=== PATIENT | female | born 1990 | race African-American/Black ===

== ENCOUNTER 2018-06-02 13:38 | Emergency (ER) | payer SELFPAY ==
[2018-06-02 14:01] VITALS: BP 122/65; PULSE 79; TEMP 98.5; BMI 24.2
--- NOTE | 2018-06-02 15:33 | PDOC ---
History of Present Illness - General Chief Complaint: Pain Stated Complaint: Weakness Time Seen by Provider: 06/02/18 15:25 - History of Present Illness Initial Comments: 06/02/18 15:29 28 yo , aborta 1, LMP 02/2018, at 14 wga, confirmed on U/S who p/w lower back, and pelvic pain. Patient endorses one day of sharp, shooting, severe lower back pain with radiation into pelvis. No identifiable alleviators or triggers resolving spontaneously after minutes. Tylenol 4-6 hours with absent relief. Endorses 4-5 episodes of non bilious, non bloody emesis yesterday evening. + 4-6 episodes of loose watery stools x 24 hours. Decreased PO intake, and appetite. Denies abdominal trauma. Patient denies VENTURA,vision change, palpitations, orthopnea, PND, leg pain/swelling , N/V, F,C, CP, SOB, urinary complaints, hematuria, BPR, vaginal bleeding/ discharge, constipation, lightheadedness, weakness, sensory changes. PMHx: as noted above. H/o . ROS: as noted SHx: Denies Etoh, IVDA, tobacco use Allergies: NKDA Past History - Past Medical History Allergies/Adverse Reactions: Allergies Allergy/AdvReac Type Severity Reaction Status Date / Time No Known Allergies Allergy Verified 06/02/18 14:01 Home Medications: Ambulatory Orders No Home Medications 0 dose .ROUTE UTDICT 04/07/12 COPD: No - Reproductive History (#): 3 Para: 1 Cervical CA: No Dysfunctional Uterine Bleeding: No Ectopic : No Endometrial CA: No Polycystic Ovaries: No Therapeutic (s) & number: No Tubal Ligation: No Spontaneous : 1 - Suicide/Smoking/Psychosocial Hx Smoking Status: No Smoking History: Never smoked Have you smoked in the past 12 months: No Number of Cigarettes Smoked Daily: 6 Information on smoking cessation initiated: No 'Breaking Loose' booklet given: 07/14/17 Hx Alcohol Use: No Drug/Substance Use Hx: No Substance Use Type: None Hx Substance Use Treatment: No Review of Systems - Review of Systems Comments:: 06/02/18 15:29 GENERAL/CONSTITUTIONAL: No fever or chills. No weakness. HEAD, EYES, EARS, NOSE AND THROAT: No change in vision. No ear pain or discharge. No sore throat. CARDIOVASCULAR: No chest pain or shortness of breath RESPIRATORY: No cough, wheezing, or hemoptysis. GASTROINTESTINAL:+ Abdominal pain, nausea, vomiting. No diarrhea or constipation. GENITOURINARY: No dysuria, frequency, or change in urination. MUSCULOSKELETAL: + Lower back pain. No joint or muscle swelling or pain. No neck pain. SKIN: No rash NEUROLOGIC: No headache, vertigo, loss of consciousness, or change in strength/ sensation. ENDOCRINE: No increased thirst. No abnormal weight change HEMATOLOGIC/LYMPHATIC: No anemia, easy bleeding, or history of blood clots. ALLERGIC/IMMUNOLOGIC: No hives or skin allergy. *Physical Exam - Vital Signs Last Vital Signs Temp Pulse Resp BP Pulse Ox 98.5 F 79 16 122/65 100 06/02/18 13:57 06/02/18 13:57 06/02/18 13:57 06/02/18 13:57 06/02/18 13:57 - Physical Exam Comments: 06/02/18 15:30 GENERAL: Awake, alert, and fully oriented, in no acute distress HEAD: No signs of trauma, normocephalic, atraumatic EYES: PERRLA, EOMI, sclera anicteric, conjunctiva clear ENT: Hearing grossly normal, nares patent, oropharynx clear without exudates. Moist mucosa NECK: Normal ROM, supple, no lymphadenopathy, JVD, or masses LUNGS: No distress, speaks full sentences, clear to auscultation bilaterally HEART: Regular rate and rhythm, normal S1 and S2, no murmurs, rubs or gallops, peripheral pulses normal and equal bilaterally. ABDOMEN: Soft, nontender, normoactive bowel sounds. No guarding, no rebound. No masses. Neg CVA ttp. GENITOURINARY: Nml appearing external genitalia, absent blood in vaginal vault. Absent lesions or discharge. Neg adenexal ttp. Neg CMT on BM. Cervical os closed. EXTREMITIES : Normal inspection, Normal range of motion, no edema. No clubbing or cyanosis. BACK: Neg midline or paraspinal ttp, neg bony deformity, or stepoff. Neg skin change, or fluctuance. NEUROLOGICAL: Cranial nerves II through XII grossly intact. Normal speech, normal gait, no focal sensorimotor deficits SKIN: Warm, Dry, normal turgor, no rashes or lesions noted Moderate Sedation - Procedure Monitoring Vital Signs: Procedure Monitoring Vital Signs Temperature 98.5 F 06/02/18 13:57 Pulse Rate 79 06/02/18 13:57 Respiratory Rate 16 06/02/18 13:57 Blood Pressure 122/65 06/02/18 13:57 O2 Sat by Pulse Oximetry (%) 100 06/02/18 13:57 ED Treatment Course - LABORATORY CBC & Chemistry Diagram: 06/02/18 16:02 06/02/18 16:02 Medical Decision Making - Medical Decision Making 06/02/18 16:31 28 yo , aborta 1, LMP 02/2018, at 14 wga, confirmed on U/S who p/w lower back, and pelvic pain. VSS, AF, A&Ox3. Physical exam unremarkable. Will assess for viable intrauterine . Will assess for threatened , PID, placenta previa, JENNY, cystitis, nephrolithiasis. Abdomen non tender. Low suspicion colitis, diverticutlitis, appendicitis, pyelonephritis. Will provide antiemeitic control, analgesia, IVF and reassess. . ED Course CAMILLE Villanueva 06/02/18 17:18 CBC,CMP: Unremarkable UA: Neg 06/02/18 18:13 Transabdominal U/S: IUP 16w6d, with FHR 153. Difficult to visualize ovaries d/t obscuring bowel gas. Obtain TVUS. Patient pending TVUS. 06/02/18 19:19 TVUS: 1.2 cm on right ovary. Otherwise unremarkable Stable for d/c with return precautions. Advised to f/u with [employer]. *DC/Admit/Observation/Transfer Diagnosis at time of Disposition: Pelvic pain - Discharge Dispostion Condition at time of disposition: Stable - Referrals Referrals: Dimas Bañuelos MD [Primary Care Provider] - - Patient Instructions Printed Discharge Instructions: DI for Abdominal Pain -- Early Additional Instructions: Please return to the emergency department with any new or worsening symptoms or concerns. Please follow up with your primary care physician within 72 hours. - Post Discharge Activity - Attestations Physician Attestion: 06/02/18 15:30 I attest to the information provided in this note.
[2018-06-02] MEDS ORDERED: SODIUM CHLORIDE 1,000 ML IV STA (16:00)
[2018-06-02] MEDS ORDERED: ONDANSETRON 4 MG/2 ML VIAL IVPUSH ONE (16:31)
--- NOTE | 2018-06-02 16:41 | PDOC ---
Attending Attestation - Resident Resident Name: Chang Carlinson - ED Attending Attestation I have performed the following: I have examined & evaluated the patient, The case was reviewed & discussed with the resident, I agree w/resident's findings & plan - HPI HPI: 06/02/18 18:26 28 YOF 16 weeks A1 presenting with 1 day of lower back pain radiating to her pelvis. She describes her pain as sharp resolving spontaneously without any endorsing or exacerbating factors. Patient endorses an associated 5 episodes of NBNB emesis last night with 5 episodes of loose NB stools. She denies any abnormal vaginal discharge or bleeding. She denies recent dysuria, frequency, urgency or hematuria. She denies recent chest pain or shortness of breath. No sick contacts or travel. No new changes in medications. ate grilled chicken and salad last night. Allergies: None Past Medical History: None. Social history: Lives with family. No tobacco, ETOH or drug use. Surgical history: None LMP: 02/2018 - Physicial Exam PE: 06/02/18 18:27 NAD, well appearing, PERRL, EOMI, MMM, nl conjunctiva, anicteric; neck supple. lungs clear, RRR, abdomen soft, gravid. mild Right lower pelvis tenderness; no rebound or guarding. no CVAT. KELLER x4, no focal neuro deficits. No peripheral edema. normal color for ethnicity, WWP. pelvic exam by resident. 06/02/18 18:33 - Medical Decision Making 06/02/18 18:29 hpi as documented vitals wnl DDx. gastroenteritis, electrolyte/metabolic derangements. ovarian torsion, ovarian cyst. back strain. labs and lytes wnl, UA neg for infection. given analgesia and topical lidocaine. likely back pain 2/2 progressing and uterus. TAB US with IUP visualized, unable to visualize the ovaries due to bowel gas TVUS to check for pelvic pathology/ovarian cyst, as she has h/o ovarian cyst TVUS with right ovarian cyst, internal debris. no torsion, likely related to . supportive care, analgesia, and OB followup return precautions given. rest and phys activity as tolerated. 06/02/18 18:33 06/02/18 19:19
[2018-06-02 16:46] LABS: BASO % 0.2 % (0-2.0); EOS % 0.3 % (0-4.5); HEMATOCRIT 37.2 % (32.4-45.2); HEMOGLOBIN 13.4 GM/dL (10.7-15.3); LYMPH % 7.7 % (8-40); MCH 32.7 pg (25.7-33.7); MCHC 36.1 g/dl (32.0-36.0); MEAN CELL VOLUME 90.6 fl (80-96); MEAN PLT VOLUME 7.9 fl (7.5-11.1); MONO % 8.2 % (3.8-10.2); NEUT % 83.6 % (42.8-82.8); PLATELET COUNT 197 K/MM3 (134-434); RBC 4.11 M/mm3 (3.60-5.2); RDW 12.8 % (11.6-15.6); WHITE BLOOD COUNT 6.5 K/mm3 (4.0-10.0)
[2018-06-02] MEDS ORDERED: ONDANSETRON 4 MG/2 ML VIAL ONE (16:49)
[2018-06-02 17:01] LABS: URINE APPEARANCE SLCLOUDY; URINE BILIRUBIN NEGATIVE (<2.0 mg/dL); URINE COLOR YELLOW; URINE GLUCOSE (UA) NEGATIVE (NEGATIVE); URINE KETONE 2+ (NEGATIVE); URINE LEUK ESTERASE NEGATIVE (NEGATIVE); URINE NITRITE NEGATIVE (NEGATIVE); URINE PROTEIN NEGATIVE (NEGATIVE); URINE UROBILINOGEN NEGATIVE mg/dL (0.2-1.0)
[2018-06-02 17:13] LABS: ALBUMIN 3.5 g/dl (3.4-5.0); ALK PHOS 42 U/L (45-117); ANION GAP 9 MMOL/L (8-16); BILIRUBIN,TOTAL 0.4 mg/dL (0.2-1); BLOOD UREA NITROGEN 10 mg/dL (7-18); CALCIUM 8.8 mg/dL (8.5-10.1); CHLORIDE 104 mmol/L (98-107); CO2 22 mmol/L (21-32); CREATININE 0.5 mg/dL (0.55-1.3); GLUCOSE,RANDOM 70 mg/dL (74-106); LIPASE 135 U/L (73-393); POTASSIUM 3.8 mmol/L (3.5-5.1); SGOT/AST 61 U/L (15-37); SGPT/ALT 79 U/L (13-61); SODIUM 134 mmol/L (136-145); TOT PROT 6.8 g/dl (6.4-8.2)
[2018-06-02] MEDS ORDERED: LIDOCAINE 5% TOPICAL PATCH TP ONE (19:31)
[2018-06-02] MEDS ORDERED: LIDOCAINE 5% TOPICAL PATCH ONE (19:31)
[2018-06-02] MEDS ORDERED: LIDOCAINE PATCH REMOVAL MC SCH (22:00)
== END 2018-06-02 19:36 | disposition home or self-care (01) ==
LOC: JER 13:38
PROC: 3E0337Z Introduction of Electrolytic and Water Balance Substance into Peripheral Vein, Percutaneous Approach (ICD-10-PCS; principal; 2018-06-02)
PROC: 3E033GC Introduction of Other Therapeutic Substance into Peripheral Vein, Percutaneous Approach (ICD-10-PCS; 2018-06-02)
DX: O26.892 Other specified pregnancy related conditions, second trimester (principal); R10.2 Pelvic and perineal pain; O34.82 Maternal care for other abnormalities of pelvic organs, second trimester; N83.291 Other ovarian cyst, right side; Z3A.16 16 weeks gestation of pregnancy
CPT/HCPCS: 36415; 76801-TC; 76817-TC; 80053; 81003; 83690; 85025; 87086; 99282-25; J7030

== ENCOUNTER 2020-02-12 04:33 | Emergency (ER) | payer OTHER ==
[2020-02-12 04:51] VITALS: BMI 20.5
--- NOTE | 2020-02-12 05:04 | PDOC ---
History of Present Illness - General Chief Complaint: Psychiatric Stated Complaint: ANXIETY - History of Present Illness Initial Comments: 02/12/20 05:00 29 F with hx of anxiety and panic attack (not on any psy meds) presented to the ED for anxiety issue. Patient currently had no suicidal ideation/harming self or other. Patient was hanging with friends, and had a sudden panic attack. She had fast heart rate, and generalized shaking on the extremities. Patient saw a therapist, but not a psychiatrist. Last time, she had a panic attack, she came here and got a valium. Denies chest pain, nausea/vomiting, fever, chill, abdominal pain. PMHX: as in HPI PSHX: none Meds:none Allergies: none Tob:none Etoh: none Rec drugs: none PCP: Sarmad BUSTAMANTE GENERAL/CONSTITUTIONAL: No fever or chills. No weakness. HEAD, EYES, EARS, NOSE AND THROAT: No change in vision. No ear pain or discharge. No sore throat. CARDIOVASCULAR: No chest pain or shortness of breath RESPIRATORY: No cough, wheezing, or hemoptysis. GASTROINTESTINAL: No nausea, vomiting, diarrhea or constipation. GENITOURINARY: No dysuria, frequency, or change in urination. MUSCULOSKELETAL: No joint or muscle swelling or pain. No neck or back pain. SKIN: No rash NEUROLOGIC: No headache, vertigo, loss of consciousness, or change in strength/sensation. ENDOCRINE: No increased thirst. No abnormal weight change HEMATOLOGIC/LYMPHATIC: No anemia, easy bleeding, or history of blood clots. ALLERGIC/IMMUNOLOGIC: No hives or skin allergy. PE GENERAL: Awake, alert, and fully oriented, in no acute distress HEAD: No signs of trauma, normocephalic, atraumatic EYES: PERRLA, EOMI, sclera anicteric, conjunctiva clear ENT: Auricles normal inspection, hearing grossly normal, nares patent, oropharynx clear without exudates. Moist mucosa NECK: Normal ROM, supple, no lymphadenopathy, JVD, or masses LUNGS: No distress, speaks full sentences, clear to auscultation bilaterally HEART: Regular rate and rhythm, normal S1 and S2, no murmurs, rubs or gallops, peripheral pulses normal and equal bilaterally. ABDOMEN: Soft, nontender, normoactive bowel sounds. No guarding, no rebound. No masses EXTREMITIES : Normal inspection, Normal range of motion, no edema. No clubbing or cyanosis. NEUROLOGICAL: Cranial nerves II through XII grossly intact. Normal speech, normal gait, no focal sensorimotor deficits SKIN: Warm, Dry, normal turgor, no rashes or lesions noted Past History - Medical History Allergies/Adverse Reactions: Allergies Allergy/AdvReac Type Severity Reaction Status Date / Time No Known Allergies Allergy Verified 02/12/20 04:43 Home Medications: Ambulatory Orders NK [No Known Home Medication] 02/12/20 COPD: No Psychiatric Problems: Yes (ANXIETY) - Reproductive History Is Patient Now?: No (#): 3 Para: 1 Cervical CA: No Dysfunctional Uterine Bleeding: No Ectopic : No Endometrial CA: No Polycystic Ovaries: No Therapeutic (s) & number: No Tubal Ligation: No Spontaneous : 1 - Immunization History Immunization Up to Date: Yes - Psycho-Social/Smoking History Smoking Status: No Smoking History: Never smoked Have you smoked in the past 12 months: No Number of Cigarettes Smoked Daily: 6 If you are a former smoker, when did you quit?: 2 months Information on smoking cessation initiated: No 'Breaking Loose' booklet given: 07/14/17 - Substance Abuse Hx (Audit-C & DAST Scrn) How often the patient has a drink containing alcohol: Never Score: In Men: 4 or > Positive; In Women: 3 or > Positive: 0 Screen Result (Pos requires Nsg. Audit-10AR): Negative In the last yr the pt used illegal drug/Rx for NonMed reason: No Score: Yes response is considered Positive: 0 Screen Result (Positive result requires Nsg. DAST-10): Negative *Physical Exam - Vital Signs Last Vital Signs Temp Pulse Resp BP Pulse Ox 98.5 F 85 20 118/81 100 02/12/20 04:43 02/12/20 04:43 02/12/20 04:43 02/12/20 04:43 02/12/20 04:43 Medical Decision Making - Medical Decision Making 02/12/20 05:15 Plan to give patient half a dose of valium. Give referral for psychiatrist. Continue to see therapist tomorrow. Patient will take a taxi home. Discharge - Discharge Information Problems reviewed: Yes Clinical Impression/Diagnosis: Anxiety and depression Condition: Good Disposition: HOME - Follow up/Referral Referrals: Josemanuel Bañuelos MD [Primary Care Provider] - Deepak Villasenor NP [Nurse Practitioner] - - Patient Discharge Instructions Patient Printed Discharge Instructions: DI for Panic Disorder Additional Instructions: You were seen in the ED for complaints of anxiety/panic attack In the ED you were evaluated with physical exam. Your results were negative There does not appear to be an acute need for immediate hospitalization. You are advised to follow up with your Primary Care Physician and psychiatrist within 1 week. You were given a referral to see a psychiatrist for psy medication. Return to the ED immediately if you experience worsening panic attack, difficulty breathing. - Post Discharge Activity Work/Back to School Note: My Personal Safety Plan
[2020-02-12] MEDS ORDERED: diazePAM 2 MG TABLET PO ONE (05:11)
--- OUTSIDE RECORDS SUMMARY | 2020-02-12 05:11 | XMS ---
:1990 [facility] Providers Name Role Phone ED STAFF PHYSICIAN, CORY Unavailable Unavailable ED STAFF PHYSICIAN, STAFF Unavailable Unavailable INDIA GRAVES Unavailable Unavailable TrevViri Bety Unavailable Unavailable Trev, Bety Unavailable Unavailable Trev, Bety Unavailable Unavailable Trev, Bety Unavailable Unavailable Trev, Bety Unavailable Unavailable Trev, Bety Unavailable Unavailable Re-disclosure Warning The records that you are about to access may contain information from federally- assisted alcohol or drug abuse programs. If such information is present, then the following federally mandated warning applies: This information has been disclosed to you from records protected by federal confidentiality rules (42 CFR part 2). The federal rules prohibit you from making any further disclosure of this information unless further disclosure is expressly permitted by the written consent of the person to whom it pertains or as otherwise permitted by 42 CFR part 2. A general authorization for the release of medical or other information is NOT sufficient for this purpose. The Federal rules restrict any use of the information to criminally investigate or prosecute any alcohol or drug abuse patient.The records that you are about to access may contain highly sensitive health information, the redisclosure of which is protected by Article 27-F of the [facility] Public Health law. If you continue you may haveaccess to information: Regarding HIV / AIDS; Provided by facilities licensed or operated by the [facility] Office of Mental Health; or Provided by the [facility] Office for People With Developmental Disabilities. If such information is present, then the following [facility] mandated warning applies: This information has been disclosed to you from confidential records which are protected by state law. State law prohibits you from making any further disclosure of this information without the specific written consent of the person to whom it pertains, or as otherwise permitted by law. Any unauthorized further disclosure in violation of state law may result in a fine or long term sentence or both. A general authorization for the release of medical or other information is NOT sufficient authorization for further disclosure. Encounters Encounter Providers Location Date Indications Data Source(s ) Emergency Attender: CORY ED H 05/25/2019 Vivi Pena STAFF 06:49:00 AM EST Medical C enter PHYSICIANAttender: - 05/26/2019 STAFF ED STAFF 12:22:00 AM EST PHYSICIANAdmitter: CORY ED STAFF PHYSICIAN Patient discharged. Inpatient Attender: [facility]2018 [facility]i 11[facility]19[facility]00 AM EDT - ECLAMP [facility] 11/24/2018 [facility] 02:35:00 PM EDT R-O PRE ECLAMPSIA Outpatient Attender: [facility] 11/21/2018 [facility]: [facility] AM EDT [facility] R-O PRE ECLAMPSIA Outpatient Attender: 11/19/2018 R-O LABOR [place] [facility], 01:57:00 PM EDT He alth Care JOSEAdmitter: INDIA Swann R-O LABOR Medications Medication Brand Start Product Dose Route Administrative Pharmacy [facility] Indications Reaction Description Data Name Date Form Instructions Instructions Source(s) Docusate DOK complet [facility] Sodium 100 (Docus ed r Count y MG Oral ate Health Capsule DOK Sodium Care (Docusate ) [100 Corporat io Sodium) mg n [100 mg Capsul Capsule]: 1 e]: 1 Tablet Oral Tablet 10A-6P Oral 10A-6P Discharge complet [facility] Rec. has ed r [facility] not been Health completed. Care Corporatio n Ibuprofen Ibupro complet [facility] heste 600 MG Oral fen ed [facility] Tablet [600 Health Ibuprofen mg Care [600 mg Tablet Corporatio Tablet]: 1 ]: 1 n Tablet Oral Tablet Q6HPRN PRN Oral Pain Q6HPRN PRN Pain Cephalexin cephal 1 complet Vivi t 500 MG Oral exin ed Becky Capsule 500 mg Medical cephalexin Capsul Center 500 mg e, Capsule, Ordere Ordered By: d By: Cory Byrnes, y MDDirection Fitz, s: 1 MDDire capsule ctions oral every : 1 eight hours capsul e oral every eight hours [id number] complet [facility] luis a Plus [29 mg 335 ed [facility] iron-1 mg Health Tablet]: 1 Care Tablet Oral Corporat io DAILY n Insurance Providers Payer name Policy type Policy ID Covered Covered alliance party's Policy P carlos / Coverage alliance party ID relationship to [facility] type step[place] [id number] [place] [id number] HMO O MVP/HHP O [id number] 01 [id number] MVP MEDICAID [id number] SP [id number] B O MVP Medicaid [id number] S [id number] Managed Care Medicaid [id number] S [id number] Regular Clinic Visit [facility] [id number] S [id number] Options MKD Superior [id number] S [id number] 500 Vision MKD Dental [id number] S [id number] [employer]plex MKD Problems, Conditions, and Diagnoses Code Display Name Description Problem Type Effective Data Sour ce(s) Dates K61.1 Rectal abscess RECTAL ABSCESS Diagnosis 05/25/2019 [facility] 06:49:00 AM Medical Cente r EST L02.91 Cutaneous abscess, CUTANEOUS Diagnosis 05/25/2019 [facility] unspecified ABSCESS, 06:49:00 AM Medical Cent er UNSPECIFIED EST O71.82 Other specified OTHER SPECIFIED Diagnosis 11/24/2018 Ihsan carrillo trauma to perineum TRAUMA TO 02:35:00 PM Count y Health and vulva PERINEUM AND EDT Care Corpora tion VULVA Z30.430 Encounter for ENCOUNTER FOR Diagnosis 11/24/2018 Juliane baig insertion of INSERTION OF 02:35:00 PM [facility] He alth intrauterine INTRAUTERINE EDT Care Corpo ration contraceptive CONTRACEPTIVE device DEVICE Z3A.41 41 weeks gestation 41 WEEKS Diagnosis 11/24/2018 Kristen bryan of GESTATION OF 02:35:00 PM [facility] He alth EDT Care Corporati on Z37.0 Single live SINGLE LIVE Diagnosis 11/24/2018 [place] 02:35:00 PM [facility] EDT Care Corporati on O71.4 Obstetric high OBSTETRIC HIGH Diagnosis 11/24/2018 Kristen bryan vaginal laceration VAGINAL 02:35:00 PM Count y Health alone LACERATION ALONE EDT Care Cor poration O34.219 Maternal care for MATERNAL CARE FOR Diagnosis 11/24/2018 [place] unspecified type UNSP TYPE SCAR 02:35:00 PM [facility] scar from previous FROM PREVIOUS EDT [employer] delivery DEL O48.0 Post-term POST-TERM Diagnosis 11/21/2018 [place] 11:19:00 AM [facility] EDT Care Corporati on Z3A.40 40 weeks gestation 40 WEEKS Diagnosis 11/19/2018 Kristen bryan of GESTATION OF 01:57:00 PM [facility] alth EDT Care Corporati on O26.893 Other specified OTH Diagnosis 11/19/2018 [place] bryan related RELATED 01:57:00 PM [facility] conditions, third CONDITIONS, THIRD EDT Care Corporation trimester TRIMESTER Z00.00 Encounter for Encntr for Diagnosis 07/18/2018 MARILYN (M rigo general adult general adult 03:56:39 PM [facility] medical medical exam w/o [facility] examination abnormal findings [facility]) without abnormal findings Results ID Date Data Source HematologyRou.[id number] 05/25/2019 08:27:00 AM MERVIN Ortiz [facility] 0500 Name Value Range Interpretation Description Data Sup porting Code Source(s) Document(s ) Erythrocytes 4.0-5.1 <content Saint [#/volume] in styleCode="Bold Becky Blood by ">Red Blood Medical Automated count Cell Count Center </content>4.86 MCUMM<content styleCode="Ital ics"> (4.0-5.1 MCUMM)</content > Leukocytes 4.4-11.0 Above high <content Saint [#/volume] in normal styleCode="Bold Becky Blood by ">White Blood Medical Automated count Cell Count Center </content>12.32 KCUMM H<content styleCode="Ital ics"> (4.4-11.0 KCUMM)</content > Hematocrit 36.0-46. <content Saint [Volume 0 styleCode="Bold Becky Fraction] of ">Hematocrit Medical Blood by </content>42.3 Center Automated count %<content styleCode="Ital ics"> (36.0-46.0 %)</content> Hemoglobin 12.3-16. <content Saint [Mass/volume] in 0 styleCode="Bold Becky Blood ">Hemoglobin Medical </content>14.6 Center G/DL<content styleCode="Ital ics"> (12.3-16.0 G/DL)</content> Erythrocyte mean 26.0-34. <content Saint corpuscular 0 styleCode="Bold Becky hemoglobin ">Mean Medical [Entitic mass] Corposcular Center by Automated Hemoglobin count </content>30.0 PG<content styleCode="Ital ics"> (26.0-34.0 PG)</content> Erythrocyte mean 80.0-100 <content Saint corpuscular .0 styleCode="Bold Becky volume [Entitic ">Mean Medical volume] by Corpuscular Center Automated count Volume </content>87.0 FL<content styleCode="Ital ics"> (80.0-100.0 FL)</content> Erythrocyte mean 32.0-37. <content Saint corpuscular 0 styleCode="Bold Becky hemoglobin ">Mean Corpus. Medical concentration Hgb Center [Mass/volume] by Concentration Automated count (MCHC) </content>34.5 G/DL<content styleCode="Ital ics"> (32.0-37.0 G/DL)</content> Platelets 130-400 <content Saint [#/volume] in styleCode="Bold Becky Blood by ">Platelet Medical Automated count Count Center </content>206 KCUMM<content styleCode="Ital ics"> (130-400 KCUMM)</content > Erythrocyte 11.5-14. <content Saint distribution 5 styleCode="Bold Becky width [Ratio] by ">Red Cell Medical Automated count Distribution Center Width </content>12.5 %<content styleCode="Ital ics"> (11.5-14.5 %)</content> UNK 1.6-7.3 Above high <content Saint normal styleCode="Bold Becky ">Neutrophil Medical Count Center </content>10.46 KCUMM H<content styleCode="Ital ics"> (1.6-7.3 KCUMM)</content > Lymphocytes 24.0-44. Below low normal <content Saint [#/volume] in 0 styleCode="Bold Becky Blood by ">Lymphocyte Medical Automated count </content>8.0 % Center L<content styleCode="Ital ics"> (24.0-44.0 %)</content> Neutrophils 36-66 Above high <content Saint [#/volume] in normal styleCode="Bold Becky Blood by ">Neutrophil Medical Automated count </content>85.0 Center % H<content styleCode="Ital ics"> (36-66 %)</content> UNK 1.0-4.8 Below low normal <content Saint styleCode="Bold Becky ">Lymphocyte Medical Count Center </content>0.99 KCUMM L<content styleCode="Ital ics"> (1.0-4.8 KCUMM)</content > Platelet mean 8.0-11.0 <content Saint volume [Entitic styleCode="Bold Becky volume] in Blood ">Mean Platelet Medical by Automated Volume Center count </content>9.5 FL<content styleCode="Ital ics"> (8.0-11.0 FL)</content> Eosinophils 0-5.0 <content Saint [#/volume] in styleCode="Bold Becky Blood by ">Eosinophil Medical Automated count </content>0.1 Center %<content styleCode="Ital ics"> (0-5.0 %)</content> UNK 0.0-0.6 <content Saint styleCode="Bold Becky ">Eosinophil Medical Count Center </content>0.01 KCUMM<content styleCode="Ital ics"> (0.0-0.6 KCUMM)</content > UNK 0.2-0.9 <content Saint styleCode="Bold Becky ">Monocyte Medical Count Center </content>0.79 KCUMM<content styleCode="Ital ics"> (0.2-0.9 KCUMM)</content > Monocytes 3.0-10.0 <content Saint [#/volume] in styleCode="Bold Becky Blood by ">Monocyte Medical Automated count </content>6.4 Center %<content styleCode="Ital ics"> (3.0-10.0 %)</content> UNK 0.0-0.3 <content Saint styleCode="Bold Becky ">Basophil Medical Count Center </content>0.03 KCUMM<content styleCode="Ital ics"> (0.0-0.3 KCUMM)</content > UNK 0-0.1 <content Saint styleCode="Bold Becky ">Immature Medical Granulocyte Center Count </content>0.04 KCUMM<content styleCode="Ital ics"> (0-0.1 KCUMM)</content > UNK < 1 <content Saint styleCode="Bold Becky ">Immature Medical Granulocyte Center Ratio </content>0.3 %<content styleCode="Ital ics"> (< 1 %)</content> Basophils 0.0-1.0 <content Saint [#/volume] in styleCode="Bold Becky Blood by ">Basophil Medical Automated count </content>0.2 Center %<content styleCode="Ital ics"> (0.0-1.0 %)</content> UNK 0.0 <content Saint styleCode="Bold Becky ">Nucleated Red Medical Blood Cell Center Count </content>0.00 KCUMM<content styleCode="Ital ics"> (0.0 KCUMM)</content > UNK 0 <content Saint styleCode="Bold Becky ">Nucleated Red Medical Blood Cell Center </content>0.0 /100<content styleCode="Ital ics"> (0 /100)</content> ID Date Data Source GFR(Creatinine).[id number] 05/25/2019 08:27:00 AM EST Angel [facility] 0-0500 Name Value Range Interpretation Code Description Data Lydia rce(s) Supporting Document(s ) UNK > 60 <content Saint Becky styleCode="Bold"> Medical Cent er EGFR </content>124 GFR<content styleCode="Italic s"> (> 60 GFR)</content> ID Date Data Source [id number] 05/25/2019 08:27:00 AM EST [facility] Name Value Range Interpretation Description Data Sup porting Code Source(s) Document(s ) Sodium 137-145 <content Saint [Moles/volume] styleCode="Chong Becky in Serum or d">Sodium Medical Plasma </content>138 Center MEQ/L<content styleCode="Annemarie lics"> (137-145 MEQ/L)</conten t> Potassium 3.5-5.3 <content Saint [Moles/volume] styleCode="Chong Becky in Serum or d">Potassium Medical Plasma </content>3.7 Center MEQ/L<content styleCode="Annemarie lics"> (3.5-5.3 MEQ/L)</conten t> UNK 7-17 <content Saint styleCode="Chong Becky d">BUN Medical </content>7 Center MG/DL<content styleCode="Annemraie lics"> (7-17 MG/DL)</conten t> Glucose 74-106 <content Saint [Mass/volume] styleCode="Chong Becky in Serum or d">Glucose Medical Plasma </content>96 Center MG/DL<content styleCode="Annemarie lics"> (74-106 MG/DL)</conten t> Creatinine 0.5-1.3 <content Saint [Mass/volume] styleCode="Chong Becky in Serum or d">Creatinine Medical Plasma </content>0.6 Center MG/DL<content styleCode="Annemarie lics"> (0.5-1.3 MG/DL)</conten t> Carbon 22-30 <content Saint dioxide, total styleCode="Chong Becky [Moles/volume] d">Carbon Medical in Serum or Dioxide Center Plasma </content>24 MEQ/L<content styleCode="Annemarie lics"> (22-30 MEQ/L)</conten t> Chloride 98-107 <content Saint [Moles/volume] styleCode="Chong Becky in Serum or d">Chloride Medical Plasma </content>104 Center MEQ/L<content styleCode="Annemarie lics"> (98-107 MEQ/L)</conten t> UNK > 60 <content Saint styleCode="Chong Becky d">EGFR Medical </content>124 Center GFR<content styleCode="Annemarie lics"> (> 60 GFR)</content> Calcium 8.4-10.2 <content Saint [Mass/volume] styleCode="Chong Becky in Serum or d">Calcium Medical Plasma </content>9.7 Center MG/DL<content styleCode="Annemarie lics"> (8.4-10.2 MG/DL)</conten t> ID Date Data Source [id number] 11/24/2018 08:40:27 AM EDT [facility] [id number] Corporation Name Value Range Interpretation Description Data Source(s ) Supporting Code Document(s ) ABO-Rh Type B POS <td> [place] 11/21/2018 [facility] 12:28</td><td> Care ABO-Rh Type Corporation </td><td> B POS
</td> Antibody NEG <td> [place] Screen 11/21/2018 [facility] 12:28</td><td> Care Antibody Corporation Screen </td><td> NEG
</td> Specimen 11/25/19 <td> [place] expiration 19 23:59 11/21/2018 [facility] date of Blood 12:28</td><td> Care Specimen Corporation Expiration Date </td><td> 11/24/2018 23:59
</td> ID Date Data Source [id number] 11/24/2018 08:40:27 AM EDT [facility] [id number] Corporation Name Value Range Interpretation Description Data Sup porting Code Source(s) Document(s ) Erythrocytes 4.07 3.80-5. <td> [place] [#/volume] in m/mm3 10 11/21/2018 [facility] Blood m/mm3 12:28</td><td Care > RBC Corporation </td><td> 4.07
(3.80-5.10) m/mm3 </td> Leukocytes 6.5 4.5-10. <td> [place] [#/volume] in k/mm3 8 k/mm3 11/21/2018 [facility] Blood by 12:28</td><td Care Automated count > WBC Corporation </td><td> 6.5
(4.5-10.8) k/mm3 </td> Hemoglobin 12.9 11.6-15 <td> [place] [Mass/volume] in g/dL .0 g/dL 11/21/2018 [facility] Blood 12:28</td><td Care > HGB Corporation </td><td> 12.9
(11.6-15.0) g/dL </td> Erythrocyte mean 35.3 % 32.0-36 <td> [place] corpuscular .0 % 11/21/2018 [facility] hemoglobin 12:28</td><td Care concentration > MCHC Corporation [Mass/volume] in </td><td> Blood from Fetus by Automated 35.3 count
(32.0-36.0) % </td> Erythrocyte 12.0 % 11.5-14 <td> [place] distribution .5 % 11/21/2018 [facility] width [Entitic 12:28</td><td Care volume] by > RDW Corporation Automated count </td><td> 12.0
(11.5-14.5) % </td> Hematocrit 36.5 % 36.0-45 <td> [place] [Volume .0 % 11/21/2018 [facility] Fraction] of 12:28</td><td Care Blood by > HCT Corporation Automated count </td><td> 36.5
(36.0-45.0) % </td> Erythrocyte mean 89.7 fL 80.0-96 <td> [place] corpuscular .0 fL 11/21/2018 [facility] volume [Entitic 12:28</td><td Care volume] by > MCV Corporation Automated count </td><td> 89.7
(80.0-96.0) fL </td> Erythrocyte mean 31.7 pg 27.0-31 <td> [place] corpuscular .5 pg 11/21/2018 [facility] hemoglobin 12:28</td><td Care [Entitic mass] > MCH Corporation by Automated </td><td><par count agraph styleCode="Jaxson ld"> 31.7 H </paragraph>< br/> (27.0-31.5) pg </td> Platelets 192 160-410 <td> [place] [#/volume] in k/mm3 k/mm3 11/21/2018 [facility] Blood by 12:28</td><td Care Automated count > Platelet Corporation Count </td><td> 192
(160-410) k/mm3 </td> Platelet mean 10.6 fL 9.8-12. <td> [place] volume [Entitic 8 fL 11/21/2018 [facility] volume] in Blood 12:28</td><td Care by Automated > MPV [employer] count </td><td> 10.6
(9.8-12.8) fL </td> ID Date Data Source [id number] 11/19/2018 04:35:37 PM EDT [facility] [id number] Corporation Name Value Range Interpretation Description Data Sup porting Code Source(s) Document(s ) Erythrocytes 3.92 3.80-5. <td> 11/19/2018 [place] [#/volume] in m/mm3 10 15:20</td><td> [facility] Blood m/mm3 RBC </td><td> Care Corporation 3.92
(3.80-5.10) m/mm3 </td> Hematocrit 35.6 % 36.0-45 <td> 11/19/2018 [place] [Volume .0 % 15:20</td><td> [facility] Fraction] of HCT Care Blood by </td><td><simon Corporation Automated count raph styleCode="Bold "> 35.6 L </paragraph>
(36.0-45.0) % </td> Hemoglobin 12.5 11.6-15 <td> 11/19/2018 [place] [Mass/volume] g/dL .0 g/dL 15:20</td><td> [facility] in Blood HGB </td><td> Care Corporation 12.5
(11.6-15.0) g/dL </td> Leukocytes 6.3 4.5-10. <td> 11/19/2018 [place] [#/volume] in k/mm3 8 k/mm3 15:20</td><td> [facility] Blood by WBC </td><td> Care Automated count Corporation 6.3
(4.5-10.8) k/mm3 </td> Erythrocyte 90.8 fL 80.0-96 <td> 11/19/2018 [place] mean .0 fL 15:20</td><td> [facility] corpuscular MCV </td><td> Care volume [Entitic Corporation volume] by 90.8 Automated count
(80.0-96.0) fL </td> Erythrocyte 31.9 pg 27.0-31 <td> 11/19/2018 [place] mean .5 pg 15:20</td><td> [facility] corpuscular MCH Care hemoglobin </td><td><simon Corporation [Entitic mass] raph by Automated styleCode="Bold count "> 31.9 H </paragraph>
(27.0-31.5) pg </td> Erythrocyte 12.6 % 11.5-14 <td> 11/19/2018 [place] distribution .5 % 15:20</td><td> [facility] h width [Entitic RDW </td><td> Care volume] by Corporation Automated count 12.6
(11.5-14.5) % </td> Erythrocyte 35.1 % 32.0-36 <td> 11/19/2018 [place] mean .0 % 15:20</td><td> [facility] corpuscular MCHC </td><td> Care hemoglobin Corporation concentration 35.1 [Mass/volume] in Blood from
Fetus by (32.0-36.0) % Automated count </td> Platelets 181 160-410 <td> 11/19/2018 [place] [#/volume] in k/mm3 k/mm3 15:20</td><td> [facility] Blood by Platelet Count Care Automated count </td><td> Corporation 181
(160-410) k/mm3 </td> Platelet mean 9.6 fL 9.8-12. <td> 11/19/2018 [facility] r volume [Entitic 8 fL 15:20</td><td> [facility] volume] in MPV Care Blood by </td><td><simon [employer] Automated count raph styleCode="Bold "> 9.6 L </paragraph>
(9.8-12.8) fL </td> Lymphocytes 21.7 % 18.0-53 <td> 11/19/2018 [place] [#/volume] in .0 % 15:20</td><td> [facility] Blood by Lymphocytes Jeeran Automated count </td><td> [employer] 21.7
(18.0-53.0) % </td> Immature 0.5 % 0.0-0.5 <td> 11/19/2018 [place] granulocytes/10 % 15:20</td><td> [facility] alth 0 leukocytes in IG% </td><td> Care Blood by [employer] Automated count 0.5
(0.0-0.5) %
The IG fraction represents metamyelocytes, myelocytes and/or
promyelocytes and is only reported as part of the automated
differential when found at a percentage of less than 6.
If higher than 6%, a manual differential will be performed.

(0.0-0.5) % </td> Monocytes/Leuko 9.7 % 0.0-11. <td> 11/19/2018 [facility] cytes [Pure 0 % 15:20</td><td> [facility] number Monocytes. Care fraction] in </td><td> [employer] Blood by Automated count 9.7
(0.0-11.0) % </td> Basophils 0.3 % 0.0-2.0 <td> 11/19/2018 [place] [#/volume] in % 15:20</td><td> [facility] Blood by Basophils Care Automated count </td><td> Corporation 0.3
(0.0-2.0) % </td> Basophils+Eosin 0.5 % 0.0-5.0 <td> 11/19/2018 [facility] ophils+Monocyte % 15:20</td><td> [facility] He alth s [#/volume] in Eosinophils Care Blood by </td><td> [employer] Automated count 0.5
(0.0-5.0) % </td> Neutrophils [#] 67.3 % 36.0-73 <td> 11/19/2018 [facility] in Body fluid .0 % 15:20</td><td> [facility] by Manual count Neutrophils Care </td><td> [employer] 67.3
(36.0-73.0) % </td> Procedure Social History Code Duration Value Status Description Data Source(s ) Smoking 05/25/2019 Occasional Smoker completed Occasional Smoker [facility] 07:50:00 AM EST Medical C enter Smoking 05/25/2019 Occasional Smoker completed Occasional Smoker [facility] 07:48:00 AM EST Medical C enter Smoking 05/25/2019 Occasional Smoker completed Occasional Smoker [facility] 07:05:00 AM EST Medical C enter Smoking Unknown if ever completed Unknown if ever [place] smoked smoked [facility] Corporati on Vital Signs ID Date Data Source UNK Name Value Range Interpretation Code Description Data Source(s) Body temperature 36.619232 36.988984 Reema [facility] Respiratory rate 17 /min 17 /min [facility] Oxygen saturation 99 % 99 % [facility] Aaliyah whalen in Arterial blood Medical Center by Pulse oximetry Heart rate 72 /min 72 /min [facility] Diastolic blood 68 mm[Hg] 68 mm[Hg] [facility] pressure Medical Center Systolic blood 117 mm[Hg] 117 mm[Hg] [facility] Center Body temperature 36.926477 36.151947 Reema [facility] Respiratory rate 18 /min 18 /min [facility] Oxygen saturation 99 % 99 % [facility] A[facility]yah osephs in Arterial blood Medical Center by Pulse oximetry Heart rate 75 /min 75 /min [facility] Diastolic blood 62 mm[Hg] 62 mm[Hg] [facility] pressure [facility] Center Systolic blood 112 mm[Hg] 112 mm[Hg] [facility] Body weight 75.108817 75.197943 kg [facility] hs Measured kg Medical Center Body temperature 37.637832 37.697384 Reema [facility] Respiratory rate 18 /min 18 /min [facility] Oxygen saturation 99 % 99 % [facility] osephs in Arterial blood [facility] Center by Pulse oximetry Heart rate 77 /min 77 /min [facility] Body height 172.848139 172.375043 cm [facility] Diastolic blood 72 mm[Hg] 72 mm[Hg] [facility] Systolic blood 126 mm[Hg] 126 mm[Hg] [facility] Body mass index 25.2 kg/m2 25.2 kg/m2 [facility] (BMI) [Ratio] [facility] [address] [facility] Diastolic blood 73 {} Normal (applies to 73 {} [place] pressure non-numeric results) [facility] Systolic blood 111 {} Normal (applies to 111 {} [place] pressure non-numeric results) [facility] First Respiration 17.0000 {} Normal (applies to 17.0000 {} [place] rate Set non-numeric results) [facility] Heart rate 70.0000 {} Normal (applies to 70.0000 {} [place] non-numeric results) [facility] Body temperature 98.0000 {} Normal (applies to 98.0000 {} [place] non-numeric results) [facility] wt - obtain Normal (applies to {} [place] non-numeric results) [facility] weight - kg 93.1810 {} Normal (applies to 93.1810 {} [place] non-numeric results) [facility] No Vital Sign [facility] exists for this Care Thomas oration episode. Patient Treatment Plan of Care Planned Activity Planned Date Details Description Data Source (s) Cephalexin 500 MG Oral [facility]
--- NOTE | 2020-02-12 05:15 | PDOC ---
Attending Attestation - Resident Resident Name: Juan Antonio Dewitt - ED Attending Attestation I have performed the following: I have examined & evaluated the patient, The case was reviewed & discussed with the resident, I agree w/resident's findings & plan, Exceptions are as noted - HPI HPI: 02/18/20 20:16 See resident HPI - Physicial Exam PE: 02/18/20 20:16 Agree with documented exam - Medical Decision Making 02/18/20 20:16 29F vitally stable, subjective complaint of anxiety symptomatic tx, re-eval dispo per clinical course, likely dc with appropriate follow up Discharge - Discharge Information Problems reviewed: Yes Clinical Impression/Diagnosis: Anxiety and depression Condition: Good Disposition: HOME - Follow up/Referral Referrals: Josemanuel Bañuelos MD [Primary Care Provider] - Deepak Villasenor NP [Nurse Practitioner] - - Patient Discharge Instructions Patient Printed Discharge Instructions: DI for Panic Disorder Additional Instructions: You were seen in the ED for complaints of anxiety/panic attack In the ED you were evaluated with physical exam. Your results were negative There does not appear to be an acute need for immediate hospitalization. You are advised to follow up with your Primary Care Physician and psychiatrist within 1 week. You were given a referral to see a psychiatrist for psy medication. Return to the ED immediately if you experience worsening panic attack, difficulty breathing. - Post Discharge Activity Work/Back to School Note: My Personal Safety Plan
[2020-02-12] MEDS ORDERED: diazePAM 2 MG TABLET ONE (05:19)
[2020-02-12 06:26] VITALS: BP 109/70; PULSE 79; TEMP 98.1
== END 2020-02-12 06:44 | disposition home or self-care (01) ==
LOC: JER 04:33
DX: F41.9 Anxiety disorder, unspecified (principal); F32.9 Major depressive disorder, single episode, unspecified
CPT/HCPCS: 99284-25

== ENCOUNTER 2021-09-04 21:55 | Emergency (ER) | payer OTHER ==
[2021-09-04 22:53] VITALS: BP 93/64; PULSE 85; TEMP 98.7; BMI 22.1
== END 2021-09-05 00:41 | disposition home or self-care (01) ==
LOC: JER 21:55
DX: S09.90XA Unspecified injury of head, initial encounter (principal); Y04.8XXA Assault by other bodily force, initial encounter
CPT/HCPCS: 70450-TC; 99284-25